=== PATIENT | male | born 1960 | race Caucasian/White ===

== ENCOUNTER → 2016-09-10 09:30 | Day surgery (SDC) | payer BC ==
[~2016-09-10 09:30] MED LIST: Acetaminophen TAB* 325 MG PO PRN; Buffered Lidocaine 1% SYRIN* 3 ML/SYR SYRINGE INTRADERM ONE; Bupivacaine 0.5% SDV PF* 30 ML VIAL ONE; Dexamethasone IV* 4 MG/ML 1 ML (4 MG) ONE; DiMENhydriNATE IV* 50 MG/ML VIAL IV PUSH PRN; Famotidine IV* 10 MG/ML 2 ML (20 mg) ONE; HYDROcodone/ACETAMIN 5-325 MG* 1 TAB ONE; HYDROcodone/ACETAMIN 5-325 MG* 1 TAB PO PRN; Ketorolac INJ* 30 MG/ML 1 ML VIAL ONE; Lidocaine 2% PF* 5 ML VIAL ONE; Metoclopramide IV* 5 MG/ML 2 ML VIAL IV PRN; Midazolam* 1 MG/ML 2 ML VIAL (2 MG) ONE; Ondansetron INJ* 2 MG/ML VIAL IV PRN; Propofol* 10 MG/ML 20 ML BTL IV PUSH ONE; ceFAZolin 1 GM in Dextrose (*) 1 GM/50 ML BAG IVPB ONE; ceFAZolin 2 GM PREMIX(*) 2 GM/50 ML BAG IVPB ONE; fentaNYL* 50 MCG/ML 2 ML VIAL (100 MCG VIAL) ONE
[2016-09-10] MEDS: fentaNYL* 50 MCG/ML 2 ML VIAL (100 MCG VIAL) IV PRN ×2 (12:43→12:53)
[2016-09-10 13:31] VITALS: BP 109/66
--- NOTE | 2016-09-11 06:10 | OP ---
DATE OF OPERATION: 09/10/16 - [facility] DATE OF : 64 SURGEON: Josué Grullon MD DRIVE IN TELLER: Jaja Troy PA-C ANESTHESIOLOGIST: Dr. Abreu ANESTHESIA: General PRE-OP DIAGNOSIS: Painful retained hardware, left mid foot, previous Lisfranc fixation. POST-OP DIAGNOSIS: Painful retained hardware, left mid foot, previous Lisfranc fixation. OPERATIVE PROCEDURE: Removable of hardware, left mid foot. DESCRIPTION OF PROCEDURE: The patient was taken to the operating room, where a longitudinal incision was made through the previous mid foot incision. The plate was identified and all screws removed with a small fragment screwdriver. The oblique home-run screw from the first cuneiform second metatarsal base had fractured so this was overdrilled with screw removable kit, and the broken shaft removed under C-arm image assistance. We then irrigated thoroughly closing with Vicryl and wen for the skin and a compression dressing plaster splint applied. [id number]/[facility] #: [id number] [facility] CENTERMassimo
== END | disposition home or self-care (01) ==
LOC: OR 09:30
PROVIDERS: ATTEND Orthopaedic Surgery
DX: S92.322D Displaced fracture of second metatarsal bone, left foot, subsequent encounter for fracture with routine healing (principal); T84.84XA Pain due to internal orthopedic prosthetic devices, implants and grafts, initial encounter; Y83.1 Surgical operation with implant of artificial internal device as the cause of abnormal reaction of the patient, or of later complication, without mention of misadventure at the time of the procedure; E66.01 Morbid (severe) obesity due to excess calories; Z68.38 Body mass index [BMI] 38.0-38.9, adult; G47.33 Obstructive sleep apnea (adult) (pediatric)
CPT/HCPCS: 88300; J0690; J1100; J1885; J2250; J2704; J3010

== ENCOUNTER 2017-09-05 15:38 | Emergency (ER) | payer BC ==
[2017-09-05 15:50] VITALS: BP 121/80
--- NOTE | 2017-09-05 15:59 | ED ---
Lower Extremity - HPI Summary HPI Summary: 57M presents with right ankle pain today. He states he twisted his ankle in a hole. He has pain on the lateral aspect of his ankle. He denies any numbness or tingling. He is able to ambulate. He has not taken anything for his pain. He denies any other injury. He denies any previous injury to this area. - History of Current Complaint Chief Complaint: UCLowerExtremity Stated Complaint: ANKLE INJURY Time Seen by Provider: 09/05/17 15:48 Pain Intensity: 1 - Allergies/Home Medications Allergies/Adverse Reactions: Allergies Allergy/AdvReac Type Severity Reaction Status Date / Time MOLDS AND MILDEW Allergy Unknown Uncoded 09/05/17 15:50 Reaction Details Home Medications: Home Medications NK [No Home Medications Reported] 09/05/17 [History Confirmed 09/05/17] PMH/Surg Hx/FS Hx/Imm Hx Endocrine/Hematology History: Denies: Hx Diabetes, Hx Thyroid Disease Cardiovascular History: Reports: Hx Rheumatic Fever - A CHILD Denies: Hx Hypertension, Hx Pacemaker/ICD Respiratory History: Reports: Hx Sleep Apnea Denies: Hx Asthma, Hx Chronic Obstructive Pulmonary Disease (COPD) GI History: Reports: Hx Gastroesophageal Reflux Disease - OCCASIONAL, Hx Hiatal Hernia Denies: Hx Ulcer History: Reports: Hx Kidney Stones - POSSIBLY Denies: Hx Renal Disease Musculoskeletal History: Reports: Hx Arthritis - left knee and hip, thumbs bi- lat, Hx Tendonitis - ELBOWS Sensory History: Denies: Hx Contacts or Glasses, Hx Hearing Aid Opthamlomology History: Denies: Hx Contacts or Glasses Psychiatric History: Reports: Hx Anxiety - HX OF IN THE PAST, Hx Depression - HX OF IN THE PAST Denies: Hx Panic Disorder - Surgical History Surgery Procedure, Year, and Place: LEFT INGUINAL [place]IA REPAIR[place]. Right shoulder-[facility]. Deviated [id number]. VARICOCELE REPAIR-[facility] Hx Anesthesia Reactions: No Infectious Disease History: No Infectious Disease History: Denies: Hx Hepatitis, Hx Human Immunodeficiency Virus (HIV), Traveled Outside the [place] in Last 30 Days - Family History Known Family History: Positive: Diabetes, Other - Parkinsons, Cancer - Social History Alcohol Use: Occasionally Substance Use Type: Reports: None Smoking Status (MU): Never Smoked Tobacco Review of Systems Negative: Fever Negative: Chest Pain Positive: Myalgia - right ankle pain All Other Systems Reviewed And Are Negative: Yes Physical Exam Triage Information Reviewed: Yes Vital Signs On Initial Exam: Initial Vitals Temp Pulse Resp BP Pulse Ox 97.3 F 59 16 121/80 94 09/05/17 15:46 09/05/17 15:46 09/05/17 15:46 09/05/17 15:46 09/05/17 15:46 Vital Signs Reviewed: Yes Appearance: Positive: Well-Appearing Skin: Positive: Warm, Dry Head/Face: Positive: Normal Head/Face Inspection Eyes: Positive: Normal, Conjunctiva Clear Respiratory/Lung Sounds: Positive: Clear to Auscultation, Breath Sounds Present Cardiovascular: Positive: Normal, RRR Musculoskeletal: Positive: Strength/ROM Intact - right ankle with pain, Edema Right - lateral aspect of ankle, Other - good pulses, capillary refill<2 secs, sensation grossly intact, tenderness over lateral ascpect of right ankle Neurological: Positive: Normal Psychiatric: Positive: Normal Diagnostics - Vital Signs Vital Signs Temp Pulse Resp BP Pulse Ox 09/05/17 15:46 97.3 F 59 16 121/80 94 - Laboratory Lab Statement: Any lab studies that have been ordered have been reviewed, and results considered in the medical decision making process. - Radiology ankle Xray Interpretation: No Acute Changes Radiology Interpretation Completed By: Radiologist Lower Extremity Course/Dx - Course Course Of Treatment: 57M presents with right ankle pain today. He states he twisted his ankle in a hole. He has pain on the lateral aspect of his ankle. He denies any numbness or tingling. He is able to ambulate. He has not taken anything for his pain. He denies any other injury. He denies any previous injury to this area. on exam tenderness and mild edema over the lateral aspect of right ankle. neurovascular intact. xray normal. will treat as sprain with RICE. patient understand and agrees with plan. - Diagnoses Differential Diagnosis/HQI/PQRI: Positive: Fracture (Closed), Sprain, Strain Provider Diagnoses: Right ankle injury Discharge - Discharge Plan Condition: Good Disposition: HOME Patient Education Materials: Ankle Sprain (ED) Referrals: Ashanti Gardner MD [Primary Care Provider] - Additional Instructions: Stay off ankle as much as possible Ice, elevate, keep in XENA Ibuprofen or Tylenol every 6 hours for pain Follow up with primary if no improvement Return to ED if develop or any new or worsening symptoms
--- NOTE | 2017-09-05 16:31 | RAD ---
Indication: Right ankle pain. 3 views of the right ankle demonstrates no fracture. Ankle mortise is intact. Degenerative changes of the tibiotalar joint is noted. IMPRESSION: Degenerative changes of the tibial talar joint. No fracture is noted.
== END 2017-09-05 16:40 | disposition home or self-care (01) ==
LOC: UCEAST 15:38
DX: S99.911A Unspecified injury of right ankle, initial encounter (principal); X50.1XXA Overexertion from prolonged static or awkward postures, initial encounter; Y93.9 Activity, unspecified; Y92.9 Unspecified place or not applicable; M19.071 Primary osteoarthritis, right ankle and foot; K21.9 Gastro-esophageal reflux disease without esophagitis; K44.9 Diaphragmatic hernia without obstruction or gangrene
CPT/HCPCS: 99212; G0463

== ENCOUNTER 2018-05-06 15:50 | Emergency (ER) | payer BC ==
[2018-05-06 17:31] VITALS: BP 133/80
[2018-05-06] MEDS ORDERED: Ketorolac INJ* 30 MG/ML 1 ML VIAL IM ONE (17:59)
--- NOTE | 2018-05-06 18:13 | UC ---
Hip/Pelvis Pain - HPI Summary HPI Summary: The patient is a 57-year-old male that presents here after an injury that resulted and suspected tear of his right hamstring. He states that he was working on a wet deck when he slipped and started to do a split. He was able to catch himself but he felt something tear. Has pain in the right buttocks extending to his mid posterior thigh. He has pain at rest. He denies any other injury. - History Of Current Complaint Chief Complaint: UCLowerExtremity Stated Complaint: LEG MUSCLE INJURY Time Seen by Provider: 05/06/18 17:54 Hx Obtained From: Patient Onset/Duration: Sudden Onset Severity Initially: Severe Severity Currently: Severe Pain Intensity: 8 Pain Scale Used: 0-10 Numeric Character Of Pain: Aching, Throbbing, Spasmodic, Burning Aggravating Factor(s): Nothing Alleviating Factor(s): Nothing Torso: 1 - pain - Allergies/Home Medications Allergies/Adverse Reactions: Allergies Allergy/AdvReac Type Severity Reaction Status Date / Time amoxicillin [From Augmentin] Allergy Unknown Verified 05/06/18 17:31 Reaction Details clavulanic acid Allergy Unknown Verified 05/06/18 17:31 [From Augmentin] Reaction Details MOLDS AND MILDEW Allergy Unknown Uncoded 05/06/18 17:31 Reaction Details PMH/Surg Hx/FS Hx/Imm Hx Previously Healthy: Yes - Surgical History Surgical History: Yes Surgery Procedure, Year, and Place: LEFT INGUINAL [place]IA REPAIR[place]. Right shoulder-[facility]. Deviated [id number]. VARICOCELE REPAIR-[facility] - Family History Known Family History: Positive: Diabetes, Other - Parkinsons, Cancer - Social History Alcohol Use: Rare Substance Use Type: None Smoking Status (MU): Never Smoked Tobacco Review of Systems Constitutional: Negative Skin: Negative Eyes: Negative ENT: Negative Respiratory: Negative Cardiovascular: Negative Gastrointestinal: Negative Genitourinary: Negative Motor: Negative Neurovascular: Negative Musculoskeletal: Myalgia Neurological: Negative Psychological: Negative All Other Systems Reviewed And Are Negative: Yes Physical Exam Triage Information Reviewed: Yes Appearance: Well-Appearing, No Pain Distress, Well-Nourished Vital Signs: Initial Vital Signs Temp 98.0 F 05/06/18 17:27 Pulse 61 05/06/18 17:27 Resp 18 05/06/18 17:27 BP 133/80 05/06/18 17:27 Pulse Ox 97 05/06/18 17:27 Vital Signs Reviewed: Yes Eyes: Positive: Conjunctiva Clear ENT: Positive: Hearing grossly normal. Negative: Nasal congestion, Nasal drainage, Trismus, Muffled voice, Hoarse voice Neck: Positive: Supple, Nontender, No Lymphadenopathy Respiratory: Positive: Lungs clear, Normal breath sounds, No respiratory distress, No accessory muscle use Cardiovascular: Positive: RRR, No Murmur Musculoskeletal: Positive: Strength Intact, ROM Intact, No Edema Neurological: Positive: Alert Psychological Exam: Normal Skin Exam: Normal Diagnostics - Radiology No standard instances Radiology Interpretation Completed By: ED Physician Summary of Radiographic Findings: no avulsion fx noted Hip Injury Course/Dx - Differential Dx/Diagnosis Provider Diagnoses: RIght hamstring tear Discharge - Sign-Out/Discharge Documenting (check all that apply): Patient Departure All imaging exams completed and their final reports reviewed: No - Discharge Plan Condition: Stable Disposition: HOME Prescriptions: Cyclobenzaprine TAB* [Flexeril TAB*] 10 mg PO TID PRN #21 tab PRN Reason: Spasms Naproxen Sodium [Naproxen Sodium 500 MG TAB] 500 mg PO BID PRN #30 tab PRN Reason: Pain Referrals: Ashanti Gardner MD [Primary Care Provider] - 6 Days Additional Instructions: PT consult don't take muscle relaxent and drive or work - Billing Disposition and Condition Condition: STABLE Disposition: Home
--- NOTE | 2018-05-07 16:30 | UC ---
- Progress Note Progress Note: Xr reviewed and negative. No change in plan of care Discharge - Sign-Out/Discharge Documenting (check all that apply): Post-Discharge Follow Up All imaging exams completed and their final reports reviewed: Yes - Discharge Plan Condition: Stable Disposition: HOME Prescriptions: Cyclobenzaprine TAB* [Flexeril TAB*] 10 mg PO TID PRN #21 tab PRN Reason: Spasms Naproxen Sodium [Naproxen Sodium 500 MG TAB] 500 mg PO BID PRN #30 tab PRN Reason: Pain Patient Education Materials: Hamstring Injury (ED) Referrals: Ashanti Gardner MD [Primary Care Provider] - 6 Days Additional Instructions: PT consult don't take muscle relaxent and drive or work - Billing Disposition and Condition Condition: STABLE Disposition: Home
== END 2018-05-06 18:59 | disposition home or self-care (01) ==
LOC: UCEAST 15:50
DX: Z09 Encounter for follow-up examination after completed treatment for conditions other than malignant neoplasm (principal)
CPT/HCPCS: 72170; 96372; 99212; G0463; J1885

== ENCOUNTER 2019-01-27 09:49 | Emergency (ER) | payer BC ==
--- NOTE | 2019-01-27 09:58 | UC ---
FLU HPI - HPI Summary HPI Summary: 58 yo male presents with fatigue, fever, body aches, decreased appetite, and mild headache for the last 3 days. He tells me that his symptoms began when he woke up 3 days ago and has persisted since. He has taken ibuprofen with little change in his symptoms. Today he noticed a rash on his right inferior axilla that is warm and mildly painful. 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 He has a mild sore throat and slight dry cough. He has had a decreased appetite, but is able to eat and drink. He does not smoke. Denies PMHx. Denies sinus symptoms, SOB, chest pain, abdominal pain, nausea, vomiting, dysuria, back or flank pain. - History of Current Complaint Stated Complaint: FLU LIKE SYMP Time Seen by Provider: 01/27/19 09:56 Hx Obtained From: Patient Onset/Duration: Sudden Onset Severity Currently: Moderate Severity Initially: Moderate Pain Intensity: 7 Pain Scale Used: 0-10 Numeric - Allergy/Home Medications Allergies/Adverse Reactions: Allergies Allergy/AdvReac Type Severity Reaction Status Date / Time amoxicillin [From Augmentin] Allergy Unknown Verified 01/27/19 10:02 Reaction Details clavulanic acid Allergy Unknown Verified 01/27/19 10:02 [From Augmentin] Reaction Details MOLDS AND MILDEW Allergy Wheezing Uncoded 01/27/19 10:02 PMH/Surg Hx/FS Hx/Imm Hx - Additional Past Medical History Additional PMH: None - Surgical History Surgical History: Yes Surgery Procedure, Year, and Place: LEFT INGU[place]AL [place]IR[place]. Right shoulder-[facility]. Deviated [id number]. VARICOCELE REPAIR-[facility]. LEFT FOOT FX DR [place] WITH PINS AND REMOVAL OF PINS - Family History Known Family History: Positive: Diabetes, Other - Parkinsons, Cancer - Social History Lives: With Family Alcohol Use: Rare Substance Use Type: None Smoking Status (MU): Never Smoked Tobacco Review of Systems All Other Systems Reviewed And Are Negative: Yes Constitutional: Positive: Fever, Fatigue, Other - Body aches Skin: Positive: Rash Eyes: Positive: Negative ENT: Positive: Sore Throat Respiratory: Positive: Cough Cardiovascular: Positive: Negative Gastrointestinal: Positive: Negative Neurovascular: Positive: Negative Musculoskeletal: Positive: Negative Neurological: Positive: Negative Psychological: Positive: Negative Physical Exam - Summary Physical Exam Summary: GENERAL: Mildly ill appearing. SKIN: Right axilla: inferior aspect with oval shaped area of erythema 4.0cm in size that is warm and slightly TTP - no central clearing. No induration, abscess , fluctuance, streaking, bug bite, open wound, or drainage. HEENT: Head: AT/NC Eyes: PERRLA. EOM intact. Ears: Hearing grossly normal. TMs intact, no bulging, erythema, or edema. Nose: Nasal mucosa pink and moist. NTTP maxillary and frontal sinus. Throat: Posterior oropharynx without exudates, erythema, or tonsillar enlargement. Uvula midline. NECK: Supple. Nontender. No lymphadenopathy. CHEST: Slight wheezing left lung. No r/r. No accessory muscle use. Breathing comfortably and in no distress. CV: RRR. Without m/r/g. Pulses intact. Brisk cap refill. ABDOMEN: Soft. NTTP. No CVA tenderness. Bowel sounds present. NEURO: Alert. PSYCH: Age appropriate behavior. Triage Information Reviewed: Yes Vital Signs: Vital Signs: Temp Pulse Resp BP Pulse Ox 100.6 F 83 16 130/83 98 01/27/19 09:57 01/27/19 09:57 01/27/19 09:57 01/27/19 09:57 01/27/19 09:57 Laboratory Tests 01/27/19 10:37 Group A Strep Rapid Negative Vital Signs Reviewed: Yes Flu Course/Dx - Course Course Of Treatment: CXR: IMPRESSION: NO ACTIVE CARDIOPULMONARY DISEASE. POC strep: negative. His right axilla oval rash does not appear to be a classic EM bull's eye rash, but does appear to be an EM rash. 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 His exam is otherwise WNL without obvious source of infection. I discussed this with the pt and he agreed to have labwork drawn and begin treatment for lyme disease at this time. - Differential Dx/Diagnosis Provider Diagnosis: Erythema migrans (Lyme disease), Fever, Body aches Discharge - Sign-Out/Discharge Documenting (check all that apply): Patient Departure All imaging exams completed and their final reports reviewed: Yes - Discharge Plan Condition: Stable Disposition: HOME Prescriptions: DOXYcycline CAP(*) [DOXYcycline 100MG CAP(*)] 100 mg PO BID #28 cap Patient Education Materials: Lyme Disease (ED), Tick Bite (ED) Referrals: Ashanti Gardner MD [Primary Care Provider] - 3 Days Additional Instructions: If you develop a fever, shortness of breath, chest pain, new or worsening symptoms - please call your PCP or go to the ED immediately. You Chest X-Ray was normal and your strep test was negative. We have drawn labwork to test you for lyme disease. Your symptoms today accompanied by the rash on your arm is concerning for lyme disease, thus I recommend that you begin treatment for this with Doxycycline. Please follow up with your primary doctor within 3-5 days for a recheck of your symptoms and for review of your labwork - Billing Disposition and Condition Condition: STABLE Disposition: Home - Attestation Statements Provider Attestation: I was available for consult. This patient was seen by the DIANA. The patient was not presented to, seen by, or examined by me. -Darvin
[2019-01-27 10:02] VITALS: BP 130/83
[2019-01-27] MEDS ORDERED: Acetaminophen TAB* 325 MG PO ONE (10:12)
[2019-01-27 16:32] LABS: ABS Basophils 0.1 10^3/ul (0-0.2); ABS Lymphocytes 1.3 10^3/ul (1.0-4.8); ABS Monocytes 1.2 10^3/ul (0-0.8); ABS Neutrophils 6.4 10^3/ul (1.5-7.7); Eosinophil % 0.2 %; Hematocrit 51 % (42-52); Hemoglobin 17.5 g/dL (14.0-18.0); Lymphocyte % 14.2 %; Mean Corpuscular HGB Conc 35 g/dL (31-36); Mean Corpuscular Hemoglobin 31 pg (27-31); Mean Corpuscular Volume 90 fL (80-94); Mean Platelet Volume 8.2 fL (7.4-10.4); Platelet Count 196 10^3/uL (150-450); Red Blood Count 5.64 10^6 /uL (4.18-5.48); Red Cell Distribution Width 15 % (10-15)
[2019-01-27 16:48] LABS: Albumin 4.1 g/dL (3.2-5.2); Potassium 3.8 mmol/L (3.5-5.0); Total Bilirubin 0.6 mg/dL (0.2-1.0)
[2019-01-27 16:54] LABS: Albumin/Globulin Ratio 1.2 (1-3); BUN/Creatinine Ratio 14.1 (8-20); EGFR African American 112.8 (>60); EGFR Non-African American 93.2 (>60); Globulin 3.5 g/dL (2-4); Total Protein 7.6 g/dL (6.4-8.9)
--- NOTE | 2019-01-28 08:56 | UC ---
- Progress Note Progress Note: Chart reviewed Patient being treated for suspected Lyme CBC and CMP returned with no abnormalities No change in plan Course/Dx - Diagnoses Provider Diagnoses: Erythema migrans (Lyme disease), Fever, Body aches Discharge - Sign-Out/Discharge Documenting (check all that apply): Post-Discharge Follow Up All imaging exams completed and their final reports reviewed: Yes - Discharge Plan Condition: Stable Disposition: HOME Prescriptions: DOXYcycline CAP(*) [DOXYcycline 100MG CAP(*)] 100 mg PO BID #28 cap Patient Education Materials: Lyme Disease (ED), Tick Bite (ED) Referrals: Ashanti Gardner MD [Primary Care Provider] - 3 Days Additional Instructions: If you develop a fever, shortness of breath, chest pain, new or worsening symptoms - please call your PCP or go to the ED immediately. You Chest X-Ray was normal and your strep test was negative. We have drawn labwork to test you for lyme disease. Your symptoms today accompanied by the rash on your arm is concerning for lyme disease, thus I recommend that you begin treatment for this with Doxycycline. Please follow up with your primary doctor within 3-5 days for a recheck of your symptoms and for review of your labwork - Billing Disposition and Condition Condition: STABLE Disposition: Home
== END 2019-01-27 11:01 | disposition home or self-care (01) ==
LOC: UCEAST 09:49
DX: A69.20 Lyme disease, unspecified (principal)
CPT/HCPCS: 36415; 71046; 80053; 85025; 86618; 87651; 99212; A9270-GY; G0463